=== PATIENT | female | born 1975 | race Caucasian/White ===

== ENCOUNTER → 2021-08-10 15:25 | Outpatient (CLI) | payer OTHER, SELFPAY ==
[2021-08-10 16:54] LABS: COVID19 -Nasal RAPID Negative (Negative)
== END ==
PROVIDERS: PCP Student in an Organized Health Care Education/Training Program; Referring Provider Obstetrics & Gynecology; Visit Provider Obstetrics & Gynecology
DX: Z01.812 Encounter for preprocedural laboratory examination (principal); Z20.822 Contact with and (suspected) exposure to COVID-19
CPT/HCPCS: 87635

== ENCOUNTER 2021-08-11 08:12 | Day surgery (SDC) | payer OTHER, SELFPAY ==
[2021-08-10 10:02] VITALS: BMI 24.8
[2021-08-11] VITALS (11 sets, daily range): BP systolic 92–108; BP diastolic 52–68; PULSE 55–73; RESP 7–18; TEMP 36.9–37.2; O2SAT 91–100; BMI 24.8
--- NOTE | 2021-08-11 | PATH_ITS ---
[facility] Accession Number: [id number] . 01 Material submitted: . uterus - UTERUS AND BILATERAL TUBES . 02 Diagnosis: Uterus and Bilateral Tubes, Laparoscopic Supracervical Hysterectomy with Bilateral Salpingectomies (Morcellated Weight 696 grams): Interval phase endometrium; negative for glandular hyperplasia, cytologic atypia or malignancy. Myometrium with multiple intramural leiomyomas (up to 15 cm); negative for atypia or malignancy. Uterine serosa with no significant histomorphologic abnormality. Fallopian tubes x2 with benign paratubal cysts (1-15 mm); negative for atypia or malignancy. [facility] 08/13/2021 1552 Local . 02 Electronically signed: . Torie Hernandez MD, Pathologist NPI- [id number] . 01 Gross description: . The specimen is received in formalin labeled uterus and bilateral tubes and consists of a 696 gram morcellated uterus measuring 29.0 x 25.0 x 9.5 cm in aggregate. A cervix is not identified. The serosa is riddle-pink, focally hemorrhagic, and smooth. Sectioning reveals a riddle-pink endometrium measuring 0.2 cm in thickness. The myometrium is riddle-pink and trabeculated, measuring 2.5 cm in thickness. There are multiple riddle-white whorled leiomyomata and leiomyomata fragments ranging from 0.1 to 15.0 cm with no areas of hemorrhage, necrosis, or cystic degeneration identified. Also, received are two fallopian tubes measuring 5.5 cm in length x 1.0 cm in diameter and 7.5 cm in length x 1.2 cm in diameter. The serosa is riddle-pink to pink-purple and smooth with multiple paratubal cysts ranging from 0.1 to 1.5 cm. Sectioning reveals a riddle-pink mucosa and a stellate lumen measuring 0.3 cm in diameter. Assembler Type Bar And Segment are submitted. . A1-A2 - One bisected full thickness section. A3-A4 - Endomyometrium. A5-A8 - Assembler Type Bar And Segment leiomyomata. A9-A11 - Fallopian tubes, business process representative cross sections and bisected fimbria. ([id number]) /[facility] 08/12/2021 1721 Local . 02 Pathologist provided ICD-10: N92.0, D25.9 . 02 CPT . 221705 Performed at: 01 [facility] [address] [place] [address] [id number] MD Ad Foote MD Phone: [phone] Performed at: [facility] [address] [place] [address] [id number] MD Emily Watts MD Phone: [phone]
[2021-08-11] MEDS: LACTATED RINGERS 1,000 ML 100 ML IV ×2 (08:57→13:02)
--- NOTE | 2021-08-11 10:11 | PM.PREOP ---
Pre-operative Note COVID-19 COVID-19 status: Negative Result date/Date tested (Pos, Neg/Pending): 08/10/21 Interval Note History & Physical reviewed/Exam performed by Physician: Yes Changes to H&P: No H&P completed within 30 days and has changed as indicated here:: 08/10/21
[2021-08-11] MEDS: CEFAZOLIN 2 GM/20 ML SYRINGE IV (10:30)
--- NOTE | 2021-08-11 10:53 | SUR.OPER ---
Lithotomy on padded OR bed. Blue Sky Pad Positioner under torso. Head on pillow, arms padded and tucked at sides. Legs secured in padded yellow fins stirrups.
[2021-08-11] MEDS: BUPIVACAINE 0.5% (PF) VIAL 30 ML INJ (10:59)
[2021-08-11] MEDS: EPINEPHrine 1 MG/ML 0.15 MG INJ (11:00)
[2021-08-11] MEDS: ROPIVACAINE 0.2% PF 2 MG/ML 10ML AMP 20 ML INJ (11:09)
--- NOTE | 2021-08-11 12:19 | P.OP_ITS ---
Operative Date/Time/Diagnoses Date of procedure: 08/11/21 Time of procedure: 12:19 Pre-op diagnosis: Enlarged fibroid uterus Menorrhagia Post-op diagnosis: same Procedure & Clinicians Procedure: Procedures Operation Date: 08/11/21 09:15 Actual Procedure Side Surgeon p Laparoscopic Supracervical Hysterectomy w/ bilateral salpingectomies Bilateral Zeynep Pena MD Indications: Enlarged fibroid uterus Menorrhagia Surgeon: Zeynep Pena Environmental Field Team Member: Edilma Gomes Anesthesia Type: General and Local Operative Notes Findings: 15 week size multi fibroid uterus Normal tubes and ovaries Normal liver and gallbladder Appendix previously removed Closure Type: primary Specimen(s): left tube, right tube and uterus Applied: catheter (Removed at the end of the case) Estimated blood loss (mL): 75 Blood products transfused: none Procedure in detail: The patient was taken to the operating room where she was placed in the dorsal supine position. After adequate general endotracheal anesthesia was achieved, she was placed in the dorsal lithotomy position, and prepped and draped in the usual sterile fashion. A time-out was performed. A bivalve speculum was placed into the vagina. The uterus sounded to 14 cm. The cervical os was sequentially dilated until the Zumi uterine manipulator could pass easily into the endometrial cavity. The balloon was inflated. The single-tooth tenaculum was removed from the anterior lip of the cervix. The bivalve speculum was removed from the vagina. Attention was turned to the abdomen where 6 cc of 0.5% Marcaine with epinephrine were injected in the umbilical fold. A 5 mm incision was made. The Veress needle was placed into the peritoneal cavity, and its placement confirmed by aspiration and drop test. The abdominal cavity was insufflated with 4.2 L of CO2. The Veress needle was removed, and a 5 mm trocar was placed without difficulty. Two other incisions were made 4 cm lateral to the midline after 6 cc of 0.5% Marcaine with epinephrine were injected. These were 5 mm incisions. Two 5 mm trocars were placed under direct visualization. The uterus was lifted out of the pelvis. Both tubes and ovaries were examined. There was a small cyst on the left ovary. The right tube was grasped with an atraumatic grasper. Using the PlasmaKinetic was settings at 40 w, the mesosalpinx was cauterized and cut all the way down to the cornua of the uterus. The uterus was re-grabbed at the cornua. The utero-ovarian vessels were cauterized and cut. The round ligament and broad ligament were cauterized and cut. The bladder flap was created using the PlasmaKinetic with cautery and cut retirement across. The uterine arteries were identified on the right side and were cauterized. All of this was repeated on the patient's left side. Also the cyst on the left ovary was grasped with the PlasmaKinetic and cauterized. The Zumi uterine manipulator was removed from the uterus and a moistened sponge stick was placed into the vagina. The Shelley loop was placed around the uterus and cinched 2 cm above the uterosacral ligaments. The uterus was amputated from the cervix using the Shelley loop. There was some bleeding noted from the left side and this was cauterized with the PlasmaKinetic for hemostasis. The PlasmaKinetic was placed down into the cervical canal and was cauterized. The uterus was moved to the upper abdomen. A fourth incision was made above the pubic symphysis. This was a 12 mm incision. This was made after 6 cc of 0.5% Marcaine with epinephrine were injected. A 12 mm trocar was placed under direct visualization the large endobag was placed through the suprapubic trocar. The uterus and tubes were placed into the bag. The trocar was removed. The edges of the bag were brought up through the skin. The uterus was grasped with a Bria. The Uriah was placed into the bag. The uterus was morcellated in approximately 30 pieces. The bag was removed from the abdomen. The fascia on the suprapubic incision was closed with 0 Vicryl in a running fashion. The abdomen was re- insufflated with carbon dioxide gas. All of the pedicles were examined and were found to be hemostatic. 20 cc of 0.2% ropivacaine were placed over the pedicles. The instruments were removed from the abdomen. The CO2 was allowed to escape. The suprapubic incision was closed on the subcutaneous layer with 2 simple interrupted sutures with 3-0 Vicryl. All of the incisions were closed with 4-0 Monocryl in a subcuticular fashion. Steri-Strips and Allevyn dressings were placed. The moistened sponge stick was removed from the vagina. Sponge, lap, and instrument counts were correct x2. The patient tolerated the procedure well, and was taken to PACU in stable condition. Complications: none Post-operative Condition: stable Disposition: PACU Plan for aftercare: Home after recovery
[2021-08-11] MEDS: fentaNYL 100 MCG/2 ML INJ IV ×2 (12:42→12:59)
[2021-08-11] MEDS: OXYCODONE IR 5 MG TABLET PO ×2 (12:46→13:50)
--- NOTE | 2021-08-11 13:07 | SUR.PREOP ---
Received report from Shamika Bob RN; patient resting comfortably; taking po fluids without difficulty; warm blankets provided; VSS; dressings to abdomen clean, dry and intact; tasha-pad remains dry at this time. No distress noted.
--- NOTE | 2021-08-11 15:22 | SUR.PHASEII ---
drsgs dry and intact. Ice pack remains in place. [id number]
== END 2021-08-11 14:30 | disposition home or self-care (01) ==
LOC: OR 08:13 → AC 12:17
PROVIDERS: PCP Student in an Organized Health Care Education/Training Program; Referring Provider Obstetrics & Gynecology; Visit Provider Obstetrics & Gynecology
PROC: 0UT94ZL Resection of Uterus, Supracervical, Percutaneous Endoscopic Approach (ICD-10-PCS; CPT 58544; principal; 2021-08-11 09:15)
DX: D25.1 Intramural leiomyoma of uterus (principal); F32.9 Major depressive disorder, single episode, unspecified; G43.909 Migraine, unspecified, not intractable, without status migrainosus; N83.8 Other noninflammatory disorders of ovary, fallopian tube and broad ligament
CPT/HCPCS: 58544; 81025; 82962; J0171; J0690; J1885; J2405; J2704; J2795; J3010